=== PATIENT | female | born 1995 | race Two or more races ===

== ENCOUNTER 2021-11-21 22:21 | Emergency (ER) | payer SELFPAY ==
[~2021-11-21] VITALS: Ht 170.2 cm; Wt 72.6 kg
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
[2021-11-21] MEDS ORDERED: ACETAMINOPHEN ES 500 MG TABLET PO ONE (23:00)
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
[2021-11-21] MEDS ORDERED: ACETAMINOPHEN ES 500 MG TABLET ONE (23:07)
--- NOTE | 2021-11-21 23:13 | NUR ---
URINE COLLECTED AND SENT TO LAB
--- NOTE | 2021-11-21 23:51 | NUR ---
[employer] AT BEDSIDE
--- NOTE | 2021-11-22 00:42 | NUR ---
Patient does not wish to proceed with medical care recommended by Dr. porter. Patient given information related to possible complications, up to and including , which could occur as a result of leaving the hospital at this time. Patient verbalizes understanding of risks involved due to leaving against medical advice. Patient has signed AMA form.
[2021-11-22 00:44] VITALS: BP 140/70
== END 2021-11-22 00:44 | disposition left against medical advice (07) ==
LOC: ER 22:42
DX: R51.9 Headache, unspecified (principal); R22.0 Localized swelling, mass and lump, head; M79.644 Pain in right finger(s); Z88.1 Allergy status to other antibiotic agents; Y04.0XXA Assault by unarmed brawl or fight, initial encounter; Y93.89 Activity, other specified; Y92.89 Other specified places as the place of occurrence of the external cause; Y99.8 Other external cause status
CPT/HCPCS: 84703-TC